=== PATIENT | female | born 1945 | race Two or more races ===

== ENCOUNTER 2021-08-29 16:52 | Emergency (ER) | payer OTHER ==
[~2021-08-29] VITALS: Ht 160 cm; Wt 81.6 kg
[2021-08-29] MEDS ORDERED: LISINOPRIL20 MG (17:03)
[2021-08-29] MEDS ORDERED: SIMVASTATIN80 MG (17:03)
[2021-08-29] MEDS ORDERED: LOVAZA1 GM (17:03)
[2021-08-29] MEDS ORDERED: NAMENDA10 MG (17:03)
[2021-08-29] MEDS ORDERED: SYNTHROID100 MCG (17:04)
[2021-08-29] MEDS ORDERED: ARICEPT10 MG (17:04)
[2021-08-29] MEDS ORDERED: PLAVIX75 MG (17:04)
[2021-08-29] MEDS ORDERED: ISOSORBIDE DINI30 MG (17:04)
[2021-08-29] MEDS ORDERED: AMLODIPINE-OLM1 EAC2 (17:05)
[2021-08-29] MEDS ORDERED: HUMULIN R100 UNIT/1 (17:05)
[2021-08-29] MEDS ORDERED: HUMULIN N100 UNIT/2 (17:05)
== END 2021-08-29 20:32 | disposition home or self-care (01) ==
LOC: ER 16:52
DX: R55 Syncope and collapse (principal); E11.9 Type 2 diabetes mellitus without complications; I10 Essential (primary) hypertension; Z86.73 Personal history of transient ischemic attack (TIA), and cerebral infarction without residual deficits; Z79.02 Long term (current) use of antithrombotics/antiplatelets; Z79.4 Long term (current) use of insulin